=== PATIENT | female | born 1995 | race American Indian/Alaskan Native ===

== ENCOUNTER 2018-04-24 00:06 | Emergency (ER) | payer MEDICAID ==
--- NOTE | 2018-04-24 02:47 | ED PDOC ---
HPI: Psych/Substance Abuse Time Seen by Provider: 04/24/18 00:11 Chief Complaint (Nursing): Substance Abuse Chief Complaint (Provider): Substance Abuse History Per: Patient History/Exam Limitations: no limitations Onset/Duration Of Symptoms: Unknown Current Symptoms Are (Timing): Still Present Suicide/Self Injury Attempted (Context): None Additional Complaint(s): 22 y/o female brought in by EMS for an overdose. Patient states that she took an unknown amount of pills. When asked for specifications, patient reports of taking Xanax possibly laced with xanax possibly laced with fentanyl. Patient states she was not trying to harm herself. Patient notes that she has overdosed in the past. Of note, patient states she broke her ankle in February requiring her to have a surgery. At this time, patient is asking for sandwiches and beverages. As per EMS, patient was administered narcan in the field. PMD: no provider Past Medical History Reviewed: Historical Data, Nursing Documentation, Vital Signs Vital Signs: Last Vital Signs Temp 95.3 F L 04/24/18 00:07 Pulse 105 H 04/24/18 00:07 Resp 16 04/24/18 00:07 BP 124/91 H 04/24/18 00:07 Pulse Ox 100 04/24/18 00:07 - Medical History PMH: No Chronic Diseases - Surgical History Surgical History: No Surg Hx - Family History Family History: States: Unknown Family Hx - Social History Drugs: Prescription medications - Home Medications Home Medications: Ambulatory Orders Medication Instructions Recorded Naloxone HCl [Narcan] 4 mg NS PRN PRN #2 spray 04/24/18 - Allergies Allergies/Adverse Reactions: Allergies Allergy/AdvReac Type Severity Reaction Status Date / Time No Known Allergies Allergy Verified 04/24/18 00:07 Review of Systems ROS Statement: Except As Marked, All Systems Reviewed And Found Negative Psych: Positive for: Other (overdose). Negative for: Suicidal ideation Physical Exam - Reviewed Nursing Documentation Reviewed: Yes Vital Signs Reviewed: Yes - Physical Exam Appears: Positive for: No Acute Distress Head Exam: Positive for: ATRAUMATIC Skin: Positive for: Normal Color Eye Exam: Positive for: Normal appearance, PERRL (Pupils are 3 mm and reactive) Neck: Positive for: Normal Cardiovascular/Chest: Negative for: Murmur Respiratory: Positive for: Normal Breath Sounds. Negative for: Respiratory Distress Extremity: Positive for: Normal ROM. Negative for: Deformity Neurological/Psych: Positive for: Awake, Alert, Oriented (x3), Other (drowsy but arousable) - ECG O2 Sat by Pulse Oximetry: 100 (RA) Pulse Ox Interpretation: Normal Medical Decision Making Medical Decision Making: Time: 30 A/P: 22 y/o female brought in for opioid overdose s/p narcan -- Patient is currently awake and alert -- Will monitor patient for respiratory depression in the ED -- Urine Drug Screen -- Game Developer 0300 --Patient awake, alert, eating 0600 --Patient has been observed for 6 hours without respiratory depression --Will dishcharge with instructions to followup with [facility] --Stable for discharge Scribe Attestation: Documented by Nesha Hodgson, acting as a scribe for Fito Wilson MD. Provider Scribe Attestation: All medical record entries made by the Scribe were at my direction and personally dictated by me. I have reviewed the chart and agree that the record accurately reflects my personal performance of the history, physical exam, medical decision making, and the department course for this patient. I have also personally directed, reviewed, and agree with the discharge instructions and disposition. Disposition - Clinical Impression Clinical Impression: Opiate abuse, episodic - Disposition Referrals: [facility] [Outside] Disposition: Routine/Home Disposition Time: 05:57 Condition: IMPROVED Prescriptions: Naloxone HCl [Narcan] 4 mg NS PRN PRN #2 spray PRN Reason: Overdose Instructions: Opioid Use Disorder Forms: [employer] (Irish)
[2018-04-24 06:47] VITALS: BP 105/61; PULSE 98; RESP 16; TEMP 98; O2SAT 98
== END 2018-04-24 06:20 | disposition home or self-care (01) ==
LOC: H.ER 00:06
DX: F11.10 Opioid abuse, uncomplicated (principal)